=== PATIENT | female | born 1995 | race Caucasian/White ===

== ENCOUNTER 2018-12-10 06:35 | Outpatient (CLI) | payer MEDICAID ==
--- NOTE | 2018-12-10 07:57 | ULT ---
TRANSABDOMINAL TRANSVAGINAL PELVIC ULTRASOUND DATE:: 12/10/2018 12:00 AM CLINICAL HISTORY: Dysmenorrhea. COMPARISON: None. TECHNIQUE: Grayscale, color Doppler and spectral Doppler images were obtained of the pelvis see a tra nsabdominal transvaginal approach Uterus: Size: 6.5 x 4.9 x 4.0 Mass: None Cervix: Small nabothian cyst is present within the cervix. The cyst measures 8.7 mm. Endometrium: Within normal limits Endometrial Thickness: 4.5 mm Ovaries: Size: right measures 3.1 x 1.9 x 1.7 cm; left measures 3.8 x 2.0 x 2.1 cm Mass: None. Flow: Normal Cul-de-sac: Minimal free fluid IMPRESSION: No acute sonographic abnormality demonstrated. Small nabothian cyst within the cervix.
== END 2018-12-10 06:36 | disposition home or self-care (01) ==
LOC: BICULT 06:35
PROVIDERS: ATTEND Family Medicine
DX: N94.6 Dysmenorrhea, unspecified (principal); N88.8 Other specified noninflammatory disorders of cervix uteri
CPT/HCPCS: 76856